=== PATIENT | male | born 1970 | race Caucasian/White ===

== ENCOUNTER 2021-01-27 11:09 | Emergency (ER) | payer BC, MEDICAID ==
[~2021-01-27] VITALS: Ht 180.3 cm; Wt 79.5 kg
[2021-01-27 13:55] VITALS: BP 108/75
== END 2021-01-27 13:58 | disposition home or self-care (01) ==
LOC: ER 11:10
DX: U07.1 COVID-19 (principal); R05.9 Cough, unspecified; Z87.11 Personal history of peptic ulcer disease; Z88.7 Allergy status to serum and vaccine
CPT/HCPCS: 87635; 99283; C9803